=== PATIENT | male | born 1970 | race Caucasian/White ===

== ENCOUNTER 2017-04-17 21:24 | Emergency (ER) | payer OTHER ==
--- NOTE | ~2017-04-17 | CR181 ---
[facility]. [facility] A Service of [facility] & [facility] RADIOLOGY TEXT RESULTS PATIENT: GLENN ROSEN LOCATION: SED : 72 UNIT #: [id number] AGE: [address]: Alexandro Brown MD SEX: M ORDER DR: [id number] [place] [id number] E MR#: [id number] Acc #: [id number] NAME: GLENN ROSEN : 1970 SEX: M STUDY DATE/TIME: 04/17/2017 21:55 UNIT: SED ROOM: STUDY DESCRIPTION: CR Lumbar Spine 2 or 3 Views Attending Physician: Alexandro Brown M.D. Referring Physician: Alexandro Brown M.D. Ordering Physician: Alexandro Brown M.D. Primary Care Physician: No Primary Care Physician MEDICAL IMAGING REPORT This report is preliminary unless electronic signature is present. EXAM Lumbar spine. INDICATIONS Low back pain. FINDINGS 3 views of the lumbar spine without comparison. There is no acute fracture or subluxation. Vertebral body height and alignment is normal. There is some mild disc space narrowing at L4-5 and L5-S1. There is associated facet arthropathy. Sacroiliac joints within normal limits. IMPRESSION 1. No acute findings. 2. Mild degenerative changes in the lower lumbar spine. Dictated by... Jerry Worthington M.D. THIS IS AN ELECTRONICALLY VERIFIED REPORT Jerry Worthington M.D. at 04/18/2017 2:26 AM KANNAN/cecilia TD: 04/18/2017 02:08 JOB #: [id number] MEDICAL IMAGING REPORT Page 1 of 1
[~2017-04-17 21:24] MED LIST: AMOXICILLIN875 MG PO; BACTRIM DS TABL1 TA1 PO; FLEXERIL10 MG PO; IBUPROFEN800 MG PO; KEFLEX500 M1 PO; LORTAB 7.5-5001 TAB PO; NO MEDICATIONS; PREDNISONE PO; PROMETHAZINE D118 ML PO; TYLENOL PM; VOLTAREN50 MG PO
[2017-04-17] MEDS ORDERED: NO MEDICATIONS (21:34)
== END 2017-04-17 22:31 | disposition home or self-care (01) ==
LOC: SED 21:24
DX: S39.012A Strain of muscle, fascia and tendon of lower back, initial encounter (principal); F17.200 Nicotine dependence, unspecified, uncomplicated; X58.XXXA Exposure to other specified factors, initial encounter
CPT/HCPCS: 72100; 96372; 99283; J1885

== ENCOUNTER 2017-04-25 20:57 | Emergency (ER) | payer OTHER | END 2017-04-25 22:09 | disposition home or self-care (01) | LOC: SED 20:57 | DX: S39.012A Strain of muscle, fascia and tendon of lower back, initial encounter (principal); M54.41 Lumbago with sciatica, right side; F17.210 Nicotine dependence, cigarettes, uncomplicated; X50.9XXA Other and unspecified overexertion or strenuous movements or postures, initial encounter; Y92.009 Unspecified place in unspecified non-institutional (private) residence as the place of occurrence of the external cause | CPT/HCPCS: 96372; 99283; J1885 ==